=== PATIENT | female | born 1970 | race Caucasian/White ===

== ENCOUNTER 2021-02-12 12:39 | Emergency (ER) | payer OTHER, SELFPAY ==
--- NOTE | ~2021-02-12 | XR_ITS ---
EXAMINATION: XR CHEST CLINICAL INFORMATION: Shortness of breath COMPARISON: Chest radiographs 04/29/2016, 08/20/2011 TECHNIQUE: 2 views of the chest were obtained. FINDINGS: The lungs are clear and there is no airspace consolidation or groundglass opacity. No pneumothorax or pleural reaction or effusion. The heart is normal in size. The hilar and mediastinal contours and bony structures are unremarkable. XR/XR chest 2V IMPRESSION: Unremarkable examination.
[2021-02-12 14:02] VITALS: BP 158/88; PULSE 76; RESP 18; TEMP 36.2; O2SAT 99; BMI 29.9
--- NOTE | 2021-02-12 18:02 | PC.NURSE ---
ATTEMPTED TO CALL INTO ED. NO ANSWER IN WAITING ROOM
== END 2021-02-12 19:06 | disposition left against medical advice (07) ==
PROVIDERS: Emergency Provider Emergency Medicine; PCP Internal Medicine
DX: R06.02 Shortness of breath (principal); R05.9 Cough, unspecified; R51.9 Headache, unspecified
CPT/HCPCS: 71046; 99282; 99283